=== PATIENT | male | born 1955 | race Caucasian/White ===

== ENCOUNTER 2020-11-02 06:31 | Day surgery (SDC) | payer MEDICARE ==
[2020-11-02] VITALS (13 sets, daily range): BP systolic 121–176; BP diastolic 73–100
[~2020-11-02] VITALS: Ht 170.2 cm; Wt 75.4 kg
[2020-11-02] MEDS ORDERED: LOSA50TA64 PO (07:03)
[2020-11-02] MEDS ORDERED: ASPI-1265 PO (07:03)
[2020-11-02] MEDS ORDERED: TRAZ-251 PO (07:03)
[2020-11-02] MEDS ORDERED: APIX5TAB3 PO (07:03)
[2020-11-02] MEDS ORDERED: LACT1CAP75 PO (07:03)
[2020-11-02] MEDS ORDERED: UBID100C45 PO (07:03)
[2020-11-02] MEDS ORDERED: SOTA80TA73 PO (07:03)
[2020-11-02] MEDS ORDERED: VITAMIN D3 (07:03)
[2020-11-02 07:46] LABS: BASOPHILS # (AUTO) 0.1 X10'3 (0-0.2); BASOPHILS % (AUTO) 1.1 % (0-1); EOSINOPHILS # (AUTO) 0.2 X10'3 (0-0.9); HEMATOCRIT 43.9 % (42.0-52.0); HEMOGLOBIN 14.7 g/dl (14.0-17.9); LYMPHOCYTES # (AUTO) 1.8 X10'3 (1.1-4.8); LYMPHOCYTES % (AUTO) 24.3 % (21-51); MEAN CORPUSCULAR HEMOGLOBIN 30.4 PG (27.0-31.0); MEAN CORPUSCULAR HGB CONC 33.5 g/dL (33.0-36.5); MEAN CORPUSCULAR VOLUME 90.5 FL (78-98); MEAN PLATELET VOLUME 7.3 FL (7.4-10.4); MONOCYTES # (AUTO) 0.8 X10'3 (0-0.9); MONOCYTES % (AUTO) 10.2 % (2-12); NEUTROPHILS # (AUTO) 4.6 X10'3 (1.8-7.7); NEUTROPHILS % (AUTO) 61.4 % (42-75); PLATELET COUNT 298 X10'3 (140-440); RED BLOOD COUNT 4.84 X10'6 (4.70-6.10); RED CELL DISTRIBUTION WIDTH 14.1 % (11.5-14.5); WHITE BLOOD COUNT 7.5 X10'3 (4.5-11.0)
[2020-11-02 08:07] LABS: ALBUMIN 3.6 G/DL (3.4-5.0); ANION GAP 8 (8-16); BLOOD UREA NITROGEN 25 MG/DL (7-18); BUN/CREATININE RATIO 35.7 (5.4-32.0); CALCIUM 8.7 MG/DL (8.5-10.1); CHLORIDE 107 MMOL/L (99-107); GLUCOSE 101 MG/DL (70-104); POTASSIUM 3.7 MMOL/L (3.5-5.1); SODIUM 142 MMOL/L (135-145); TOTAL CARBON DIOXIDE 26.9 MMOL/L (24-32); eGFR > 90 ML/MIN
[2020-11-02] MEDS ORDERED: MIDAZolam 1mg/ml 10ml vial IV ONE ×2 (08:40→10:50)
[2020-11-02] MEDS ORDERED: amiodarone 150mg/dext, iso-os 100 ML IV ONE ×2 (08:40→10:50)
[2020-11-02] MEDS ORDERED: morphine 10mg/ml inj. IV ONE ×2 (08:40→10:50)
[2020-11-02] MEDS ORDERED: atropine 0.1mg/ml 10ml syringe IV ONE ×2 (08:40→10:50)
[2020-11-02] MEDS ORDERED: LORazepam 0.5 MG tablet PO ONE (10:50)
[2020-11-02] MEDS ORDERED: normal saline 1000ml 1,000 ML IV SCH (10:50)
[2020-11-02] MEDS ORDERED: diphenhydrAMINE 25mg capsule PO ONE (10:50)
== END 2020-11-02 11:00 | disposition home or self-care (01) ==
LOC: SSTAY O 06:31
PROVIDERS: ATTEND Internal Medicine Cardiovascular Disease
DX: I48.19 Other persistent atrial fibrillation (principal); I49.5 Sick sinus syndrome; I10 Essential (primary) hypertension; E11.9 Type 2 diabetes mellitus without complications; E78.5 Hyperlipidemia, unspecified; K21.9 Gastro-esophageal reflux disease without esophagitis; M19.90 Unspecified osteoarthritis, unspecified site; F17.220 Nicotine dependence, chewing tobacco, uncomplicated; Z79.01 Long term (current) use of anticoagulants; Z79.82 Long term (current) use of aspirin; Z79.899 Other long term (current) drug therapy; Z98.890 Other specified postprocedural states; Z83.3 Family history of diabetes mellitus; Z82.49 Family history of ischemic heart disease and other diseases of the circulatory system
CPT/HCPCS: 36415; 80048; 85025; 85610; 92960; 93005; 94760; 94799; J2250; J2270

== ENCOUNTER 2022-01-18 07:10 | Day surgery (SDC) | payer MEDICARE, BC ==
[~2022-01-18] VITALS: Ht 170.2 cm; Wt 73.9 kg
[2022-01-18] VITALS (26 sets, daily range): BP systolic 98–163; BP diastolic 66–114
[~2022-01-18 07:10] MED LIST: APIX5TAB3 PO; ASPI-1265 PO; LACT1CAP75 PO; LOSA50TA64 PO; SOTA80TA73 PO; TRAZ-251 PO; UBID100C45 PO; VITAMIN D3
[2022-01-18] MEDS ORDERED: SOTA80TA73 PO (07:34)
[2022-01-18] MEDS ORDERED: OMEG1CAP61 PO (07:34)
[2022-01-18] MEDS ORDERED: MIDAZolam 1mg/ml 10ml vial IV ONE (08:15)
[2022-01-18] MEDS ORDERED: atropine 0.1mg/ml 10ml syringe IV ONE (08:15)
[2022-01-18] MEDS ORDERED: LORazepam 0.5 MG tablet PO ONE (08:15)
[2022-01-18] MEDS ORDERED: diphenhydrAMINE 25mg capsule PO ONE (08:15)
[2022-01-18] MEDS ORDERED: amiodarone 150mg/dext, iso-os 100 ML IV ONE (08:15)
[2022-01-18] MEDS ORDERED: morphine 10mg/ml inj. IV ONE (08:15)
[2022-01-18 08:16] LABS: BASOPHILS # (AUTO) 0.1 X10'3 (0-0.2); EOSINOPHILS # (AUTO) 0.2 X10'3 (0-0.9); EOSINOPHILS % (AUTO) 2.9 % (0-6); HEMATOCRIT 41.5 % (42.0-52.0); LYMPHOCYTES # (AUTO) 1.8 X10'3 (1.1-4.8); LYMPHOCYTES % (AUTO) 24.3 % (21-51); MEAN CORPUSCULAR HEMOGLOBIN 30.2 PG (27.0-31.0); MEAN CORPUSCULAR HGB CONC 33.6 g/dL (33.0-36.5); MEAN CORPUSCULAR VOLUME 89.8 FL (78-98); MEAN PLATELET VOLUME 7.3 FL (7.4-10.4); MONOCYTES # (AUTO) 0.6 X10'3 (0-0.9); MONOCYTES % (AUTO) 8.1 % (2-12); NEUTROPHILS # (AUTO) 4.7 X10'3 (1.8-7.7); NEUTROPHILS % (AUTO) 63.7 % (42-75); PLATELET COUNT 264 X10'3 (140-440); RED BLOOD COUNT 4.62 X10'6 (4.70-6.10); RED CELL DISTRIBUTION WIDTH 13.9 % (11.5-14.5); WHITE BLOOD COUNT 7.4 X10'3 (4.5-11.0)
[2022-01-18 08:19] LABS: ALBUMIN 3.4 G/DL (3.4-5.0); ANION GAP 7 (8-16); BLOOD UREA NITROGEN 25 MG/DL (7-18); BUN/CREATININE RATIO 33.3 (5.4-32.0); CALCIUM 8.6 MG/DL (8.5-10.1); CHLORIDE 107 MMOL/L (99-107); CREATININE 0.75 MG/DL (0.60-1.10); GLUCOSE 107 MG/DL (70-104); POTASSIUM 3.6 MMOL/L (3.5-5.1); SODIUM 142 MMOL/L (135-145); TOTAL CARBON DIOXIDE 28.3 MMOL/L (24-32); eGFR > 90 ML/MIN
[2022-01-18] MEDS ORDERED: normal saline 1000ml 1,000 ML IV SCH (08:25)
== END 2022-01-18 12:15 | disposition home or self-care (01) ==
LOC: SSTAY O 07:10
PROVIDERS: ATTEND Internal Medicine Cardiovascular Disease
DX: I48.0 Paroxysmal atrial fibrillation (principal); I10 Essential (primary) hypertension; E78.5 Hyperlipidemia, unspecified; Z79.899 Other long term (current) drug therapy; M19.90 Unspecified osteoarthritis, unspecified site; Z98.890 Other specified postprocedural states; Z79.82 Long term (current) use of aspirin; Z83.3 Family history of diabetes mellitus
CPT/HCPCS: 36415; 80048; 85025; 85610; 92960; 93005; 94760; 94799; J2250; J2274; J7030; A4620

== ENCOUNTER 2022-05-16 05:40 | Day surgery (SDC) | payer MEDICARE, BC ==
[2022-05-11 15:54] LABS: BASOPHILS # (AUTO) 0.1 X10'3 (0-0.2); BASOPHILS % (AUTO) 1.2 % (0-1); EOSINOPHILS # (AUTO) 0.3 X10'3 (0-0.9); EOSINOPHILS % (AUTO) 3.7 % (0-6); LYMPHOCYTES # (AUTO) 2.4 X10'3 (1.1-4.8); LYMPHOCYTES % (AUTO) 28.7 % (21-51); MEAN CORPUSCULAR HEMOGLOBIN 30.8 PG (27.0-31.0); MEAN CORPUSCULAR HGB CONC 34.1 g/dL (33.0-36.5); MEAN CORPUSCULAR VOLUME 90.2 FL (78-98); MEAN PLATELET VOLUME 7.3 FL (7.4-10.4); MONOCYTES # (AUTO) 0.8 X10'3 (0-0.9); MONOCYTES % (AUTO) 9.1 % (2-12); NEUTROPHILS # (AUTO) 4.9 X10'3 (1.8-7.7); NEUTROPHILS % (AUTO) 57.3 % (42-75); PRE OP HEMATOCRIT 42.5 % (42.0-52.0); PRE OP HEMOGLOBIN 14.5 g/dL (14.0-17.9); PRE OP PLATELET COUNT 283 X10'3 (140-440); RED BLOOD COUNT 4.71 X10'6 (4.70-6.10); RED CELL DISTRIBUTION WIDTH 13.9 % (11.5-14.5)
[2022-05-11 15:54] LABS: CLARITY,URINE CLEAR (Clear); COLOR,URINE YELLOW (Yellow); GLUCOSE, URINE NEGATIVE (Neg); KETONES,URINE NEGATIVE (Neg); LEUKOCYTE ESTERASE ,URINE NEGATIVE (Neg); NITRITES, URINE NEGATIVE (Neg); OCCULT BLOOD,URINE TRACE-INTACT (Neg); PROTEIN,URINE NEGATIVE (Neg); UROBILINOGEN,URINE 0.2 E.U/dL (0.2-1.0)
[2022-05-11 15:57] LABS: UA COLLECTION TYPE VOIDED
[2022-05-11 16:01] LABS: BACTERIA,URINE NONE SEEN /HPF (Neg); MUCUS STRANDS NONE SEEN /LPF (Neg); RBC,URINE 0-2 /HPF (0-2); SQUAMOUS EPITHELIAL CELL,UR NONE SEEN /LPF (FEW); WBC,URINE NONE SEEN /HPF (0-4)
[2022-05-11 16:06] LABS: ALBUMIN 3.8 G/DL (3.4-5.0); ALBUMIN/GLOBULIN RATIO 1.2 (1.1-1.5); ALKALINE PHOSPHATASE 106 IU/L (46-116); BLOOD UREA NITROGEN 21 MG/DL (7-18); BUN/CREATININE RATIO 29.2 (5.4-32.0); CALCIUM 9.3 MG/DL (8.5-10.1); CHLORIDE 104 MMOL/L (99-107); CREATININE 0.72 MG/DL (0.60-1.10); PRE OP ALT 30 U/L (30-65); PRE OP ANION GAP 4 (8-16); PRE OP AST 25 U/L (10-37); PRE OP BILIRUB, TOTAL 0.5 MG/DL (0.0-1.0); PRE OP GLUCOSE 89 MG/DL (70-104); PRE OP POTASSIUM 4.1 MMOL/L (3.4-5.1); PRE OP SODIUM 142 MMOL/L (135-145); TOTAL CARBON DIOXIDE 33.6 MMOL/L (24-32); TOTAL PROTEIN 6.9 G/DL (6.4-8.2); eGFR > 90 ML/MIN
[2022-05-16] VITALS (14 sets, daily range): BP systolic 146–200; BP diastolic 76–110
[~2022-05-16] VITALS: Ht 170.2 cm; Wt 69.4 kg
[~2022-05-16 05:40] MED LIST changes: +ERGO400C PO; -LACT1CAP75 PO; +LORazepam 0.5 MG tablet PO PRN; +OMEG1CAP61 PO; -VITAMIN D3; +ceFAZolin inj. 2,000 MG in dextrose 5%-water 100 ML IV ONE; +diphenhydrAMINE 25mg capsule PO PRN; +famotidine 20mg tablet PO ONE; +normal saline 1,000 ML IV SCH; +ringers solution, lacted 1,000 ML IV SCH
--- NOTE | 2022-05-16 06:30 | NUR ---
pt prepared for surgery. heart rate noted to be 46. stat ekg orders per md orders. senior technical support engineer at bedside, pt remains in sinus rhythm. bradycardic in the mid 40's EF noted to be 48% pt was instructed to stop his eliquis and baby aspirin 3 days prior to surgery but he stopped it 5 days prior on his own. anesthesia notified. 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
[2022-05-16] MEDS ORDERED: BUPIVAcaine 0.5% inj/PF 30 ML ONE (06:44)
[2022-05-16] MEDS ORDERED: fentaNYL/PF 50MCG/1 ML 2ML syringe ONE (07:36)
[2022-05-16] MEDS ORDERED: propofol inj 20 ML IV ONE (07:37)
[2022-05-16] MEDS ORDERED: midazolam 1 mg/ML 2ml injection ONE (07:37)
[2022-05-16] MEDS ORDERED: rocuronium 10mg/ml inj IV ONE (07:37)
[2022-05-16] MEDS ORDERED: morphine 4 MG/ML inj SYRINge IV PRN (07:50)
[2022-05-16] MEDS ORDERED: ondansetron/PF 4mg/2ml inj IV PRN (07:50)
[2022-05-16] MEDS ORDERED: meperidine/PF 25mg/ml syringe IV PRN ×2 (07:50)
[2022-05-16] MEDS ORDERED: morphine 2 MG/ML inj. syringe IV PRN (07:50)
[2022-05-16] MEDS ORDERED: proCHLORperazine 10 MG/2 ml inj IV PRN (07:50)
[2022-05-16] MEDS ORDERED: ringers solution, lacted 1,000 ML IV SCH (07:50)
[2022-05-16] MEDS ORDERED: sevoflurane 250ml liquid IH ONE (08:06)
[2022-05-16] MEDS ORDERED: BUPIVAcaine 0.5% inj/PF 30 ml vial IJ ONE (08:22)
[2022-05-16] MEDS ORDERED: dexamethasone sod phosphate 4mg/ml inj. ONE (08:30)
[2022-05-16] MEDS ORDERED: ondansetron/PF 4mg/2ml inj ONE (09:31)
[2022-05-16] MEDS ORDERED: neostigmine methylsulfate 1 MG/ML 10ml vial ONE (09:38)
[2022-05-16] MEDS ORDERED: glycopyrrolate 0.2mg/ml inj ONE (09:38)
--- NOTE | 2022-05-16 10:00 | NUR ---
Received from OR via BED, accompanied by Anesthesiologist and report given by Anesthesiologist. PATIENT WAKING UP, NO S/S OF PAIN, V/S WNL, SCD ON, 20G TO RUE, ABDOMEN LAP SITE CLEAN W/ NO S/S OF COMPLICATIONS
[2022-05-16] MEDS: meperidine/PF 25mg/ml syringe IV PRN ×2 (10:15→10:38)
[2022-05-16] MEDS ORDERED: HYDROcodone/acetaminophen 10/325mg tab PO ONE (10:15)
[2022-05-16] MEDS ORDERED: hydrALAZINE 20mg/ml inj. IV PRN (10:20)
--- NOTE | 2022-05-16 12:20 | NUR ---
PATIENT A&OX4, DENIES PAIN, V/S WNL, SCD OFF, 20G TO RUE D/C, ABDOMEN LAP SITE CLEAN W/ NO S/S OF COMPLICATIONS. PATIENT HAS VOIDED 200CC AND DR KEATING HAS STATED THAT HE MAY BE D/C HOME NOW. . I HAVE REVIEWED D/C INSTRUCTIONS WITH PATIENT and they have verbalized understanding patient d/c home with all belongings and family gave transport home.
== END 2022-05-16 12:20 | disposition home or self-care (01) ==
LOC: PAS 05:40
PROVIDERS: ATTEND Surgery
DX: K40.90 Unilateral inguinal hernia, without obstruction or gangrene, not specified as recurrent (principal); I10 Essential (primary) hypertension; I48.91 Unspecified atrial fibrillation; M19.90 Unspecified osteoarthritis, unspecified site; Z79.82 Long term (current) use of aspirin; Z98.890 Other specified postprocedural states; Z79.899 Other long term (current) drug therapy
CPT/HCPCS: 36415; 49650; 80053; 81001; 82948; 85025; 93005; C1758; C1781; J0360; J0690; J1100; J2175; J2250; J2405; J2704; J2710; J3010; J3490; J7030; J7060; J7120; S0020; Z7506; Z7508; Z7512; A4215; A4618

== ENCOUNTER 2022-10-03 08:07 | Day surgery (SDC) | payer MEDICARE, BC ==
[~2022-10-03] VITALS: Ht 170.2 cm; Wt 75.0 kg
[~2022-10-03 08:07] MED LIST changes: -LORazepam 0.5 MG tablet PO PRN; -ceFAZolin inj. 2,000 MG in dextrose 5%-water 100 ML IV ONE; -diphenhydrAMINE 25mg capsule PO PRN; -famotidine 20mg tablet PO ONE; -normal saline 1,000 ML IV SCH; -ringers solution, lacted 1,000 ML IV SCH
--- NOTE | 2022-10-03 08:25 | NUR ---
NSR on EKG. Notified Dr. Morales.
[2022-10-03 08:26] VITALS: BP 180/95
[2022-10-03] MEDS ORDERED: diphenhydrAMINE 25mg capsule PO ONE (09:15)
[2022-10-03] MEDS ORDERED: normal saline 1000ml 1,000 ML IV SCH (09:15)
[2022-10-03] MEDS ORDERED: atropine 0.1mg/ml 10ml syringe IV ONE (09:15)
[2022-10-03] MEDS ORDERED: LORazepam 0.5 MG tablet PO ONE (09:15)
[2022-10-03] MEDS ORDERED: amiodarone 150mg/dext, iso-os 100 ML IV ONE (09:15)
[2022-10-03] MEDS ORDERED: MIDAZolam 1mg/ml 10ml vial IV ONE (09:15)
[2022-10-03] MEDS ORDERED: morphine 10mg/ml inj. IV ONE (09:15)
--- NOTE | 2022-10-03 10:45 | NUR ---
Patient in NSR on EKG. Procedure cancelled. Patient left cardiac short stay. MD notified.
== END 2022-10-03 10:45 | disposition home or self-care (01) ==
LOC: SSTAY O 08:07
PROVIDERS: ATTEND Internal Medicine Cardiovascular Disease
DX: I48.0 Paroxysmal atrial fibrillation (principal); Z53.8 Procedure and treatment not carried out for other reasons
CPT/HCPCS: 93005; J7030; 92960; A4620

== ENCOUNTER 2023-04-23 06:58 | Day surgery (SDC) | payer MEDICARE, BC ==
[2023-04-22 14:17] LABS: BASOPHILS # (AUTO) 0.1 X10'3 (0-0.2); BASOPHILS % (AUTO) 0.7 % (0-1); EOSINOPHILS # (AUTO) 0.3 X10'3 (0-0.9); EOSINOPHILS % (AUTO) 3.9 % (0-6); HEMATOCRIT 45.6 % (42.0-52.0); HEMOGLOBIN 15.2 g/dl (14.0-17.9); LYMPHOCYTES # (AUTO) 1.8 X10'3 (1.1-4.8); LYMPHOCYTES % (AUTO) 20.6 % (21-51); MEAN CORPUSCULAR HEMOGLOBIN 30.5 PG (27.0-31.0); MEAN CORPUSCULAR HGB CONC 33.4 g/dL (33.0-36.5); MEAN CORPUSCULAR VOLUME 91.1 FL (78-98); MEAN PLATELET VOLUME 7.5 FL (7.4-10.4); MONOCYTES # (AUTO) 0.7 X10'3 (0-0.9); MONOCYTES % (AUTO) 7.9 % (2-12); NEUTROPHILS % (AUTO) 66.9 % (42-75); PLATELET COUNT 254 X10'3 (140-440); RED CELL DISTRIBUTION WIDTH 14.1 % (11.5-14.5); WHITE BLOOD COUNT 8.9 X10'3 (4.5-11.0)
[2023-04-22 14:35] LABS: ALBUMIN 3.5 G/DL (3.4-5.0); ANION GAP 5 (8-16); BLOOD UREA NITROGEN 22 MG/DL (7-18); BUN/CREATININE RATIO 26.8 (10.0-20.0); CALCIUM 9.5 MG/DL (8.5-10.1); CHLORIDE 107 MMOL/L (99-107); CREATININE 0.82 MG/DL (0.60-1.10); GLUCOSE 106 MG/DL (70-104); INR 1.1 INR; POTASSIUM 4.3 MMOL/L (3.5-5.1); PROTHROMBIN TIME 11.3 SECONDS (9.0-12.0); SODIUM 142 MMOL/L (135-145); TOTAL CARBON DIOXIDE 29.9 MMOL/L (24-32); eGFR > 90 ML/MIN
[~2023-04-23] VITALS: Ht 170.2 cm; Wt 73.6 kg
[2023-04-23] VITALS (13 sets, daily range): BP systolic 122–176; BP diastolic 77–112; PULSE 46–58; RESP 13–22; TEMP 97.9; O2SAT 96–99
[2023-04-23] MEDS ORDERED: atropine 0.1mg/ml 10ml syringe IV ONE (07:10)
[2023-04-23] MEDS ORDERED: diphenhydrAMINE 25mg capsule PO ONE (07:10)
[2023-04-23] MEDS ORDERED: LORazepam 0.5 MG tablet PO ONE (07:10)
[2023-04-23] MEDS ORDERED: morphine 10mg/ml inj. IV ONE (07:10)
[2023-04-23] MEDS ORDERED: normal saline 1000ml 1,000 ML IV SCH (07:10)
[2023-04-23] MEDS ORDERED: amiodarone 150mg/dext, iso-os 100 ML IV ONE (07:10)
[2023-04-23] MEDS ORDERED: MIDAZolam 1mg/ml 10ml vial IV ONE (07:10)
== END 2023-04-23 10:40 | disposition home or self-care (01) ==
LOC: SSTAY O 06:58
PROVIDERS: ATTEND Internal Medicine Cardiovascular Disease
DX: I48.0 Paroxysmal atrial fibrillation (principal); I34.0 Nonrheumatic mitral (valve) insufficiency; I10 Essential (primary) hypertension; E78.5 Hyperlipidemia, unspecified; I49.5 Sick sinus syndrome; K21.9 Gastro-esophageal reflux disease without esophagitis; M19.90 Unspecified osteoarthritis, unspecified site; F17.220 Nicotine dependence, chewing tobacco, uncomplicated; Z79.82 Long term (current) use of aspirin; Z79.01 Long term (current) use of anticoagulants; Z79.899 Other long term (current) drug therapy; Z98.890 Other specified postprocedural states; Z83.3 Family history of diabetes mellitus; Z82.49 Family history of ischemic heart disease and other diseases of the circulatory system
CPT/HCPCS: 36415; 80048; 85025; 85610; 92960; J0282; J0461; J2250; J2274; J7030; Q0163; A4620

== ENCOUNTER 2023-06-06 09:50 | Day surgery (SDC) | payer MEDICARE, BC ==
[2023-06-06] VITALS (12 sets, daily range): BP systolic 119–178; BP diastolic 82–107; PULSE 60–78; RESP 14–17; TEMP 98; O2SAT 94–99
[~2023-06-06] VITALS: Ht 170.2 cm; Wt 73.5 kg
[2023-06-06] MEDS ORDERED: normal saline 1000ml 1,000 ML IV SCH (09:55)
[2023-06-06] MEDS ORDERED: MIDAZolam 1mg/ml 10ml vial IV ONE (09:55)
[2023-06-06] MEDS ORDERED: diphenhydrAMINE 25mg capsule PO ONE (09:55)
[2023-06-06] MEDS ORDERED: amiodarone 150mg/dext, iso-os 100 ML IV ONE (09:55)
[2023-06-06] MEDS ORDERED: atropine 0.1mg/ml 10ml syringe IV ONE (09:55)
[2023-06-06] MEDS ORDERED: morphine 10mg/ml inj. IV ONE (09:55)
[2023-06-06] MEDS ORDERED: LORazepam 0.5 MG tablet PO ONE (09:55)
[2023-06-06] MEDS ORDERED: CARV3.1244 PO (09:57)
[2023-06-06] MEDS ORDERED: FLEC100T PO (09:57)
== END 2023-06-06 12:05 | disposition home or self-care (01) ==
LOC: SSTAY O 09:50
PROVIDERS: ATTEND Internal Medicine Cardiovascular Disease
DX: I48.0 Paroxysmal atrial fibrillation (principal); I10 Essential (primary) hypertension; E78.5 Hyperlipidemia, unspecified; K21.9 Gastro-esophageal reflux disease without esophagitis; M19.90 Unspecified osteoarthritis, unspecified site; I34.0 Nonrheumatic mitral (valve) insufficiency; E11.9 Type 2 diabetes mellitus without complications; F17.220 Nicotine dependence, chewing tobacco, uncomplicated; Z98.890 Other specified postprocedural states; Z79.82 Long term (current) use of aspirin; Z79.899 Other long term (current) drug therapy; Z83.3 Family history of diabetes mellitus; Z82.49 Family history of ischemic heart disease and other diseases of the circulatory system; Z72.89 Other problems related to lifestyle
CPT/HCPCS: 92960; 93005; J2250; J7030; A4620

== ENCOUNTER 2023-09-20 05:52 | Day surgery (SDC) | payer BC, MEDICARE ==
[2023-09-20] VITALS (10 sets, daily range): BP systolic 117–171; BP diastolic 72–114; PULSE 44–66; RESP 9–18; TEMP 97.7; O2SAT 92–98
[~2023-09-20] VITALS: Ht 170.2 cm; Wt 71.2 kg
[~2023-09-20 05:52] MED LIST changes: +CARV3.1244 PO; +FLEC100T PO; -SOTA80TA73 PO
[2023-09-20] MEDS ORDERED: AMI200T PO (06:21)
[2023-09-20] MEDS ORDERED: amiodarone 150mg/dext, iso-os 100 ML IV ONE (06:25)
[2023-09-20] MEDS ORDERED: diphenhydrAMINE 25mg capsule PO ONE (06:25)
[2023-09-20] MEDS ORDERED: atropine 0.1mg/ml 10ml syringe IV ONE (06:25)
[2023-09-20] MEDS ORDERED: LORazepam 0.5 MG tablet PO ONE (06:25)
[2023-09-20 06:58] LABS: BASOPHILS # (AUTO) 0.1 X10'3 (0-0.2); BASOPHILS % (AUTO) 1.5 % (0-1); EOSINOPHILS # (AUTO) 0.3 X10'3 (0-0.9); EOSINOPHILS % (AUTO) 4.3 % (0-6); HEMATOCRIT 45.1 % (42.0-52.0); HEMOGLOBIN 15.4 g/dl (14.0-17.9); LYMPHOCYTES # (AUTO) 1.7 X10'3 (1.1-4.8); LYMPHOCYTES % (AUTO) 22.3 % (21-51); MEAN CORPUSCULAR HEMOGLOBIN 30.5 PG (27.0-31.0); MEAN CORPUSCULAR HGB CONC 34.1 g/dL (33.0-36.5); MEAN CORPUSCULAR VOLUME 89.4 FL (78-98); MEAN PLATELET VOLUME 7.3 FL (7.4-10.4); MONOCYTES # (AUTO) 0.6 X10'3 (0-0.9); MONOCYTES % (AUTO) 7.8 % (2-12); NEUTROPHILS # (AUTO) 4.9 X10'3 (1.8-7.7); NEUTROPHILS % (AUTO) 64.1 % (42-75); PLATELET COUNT 242 X10'3 (140-440); RED BLOOD COUNT 5.04 X10'6 (4.70-6.10); RED CELL DISTRIBUTION WIDTH 14.4 % (11.5-14.5); WHITE BLOOD COUNT 7.7 X10'3 (4.5-11.0)
[2023-09-20 07:06] LABS: INR 1.1 INR; PROTHROMBIN TIME 11.9 SECONDS (9.0-12.0)
[2023-09-20 07:11] LABS: ALBUMIN 3.4 G/DL (3.4-5.0); ANION GAP 7 (8-16); BLOOD UREA NITROGEN 22 MG/DL (7-18); BUN/CREATININE RATIO 24.2 (10.0-20.0); CALCIUM 8.4 MG/DL (8.5-10.1); CHLORIDE 106 MMOL/L (99-107); CREATININE 0.91 MG/DL (0.60-1.10); GLUCOSE 108 MG/DL (70-104); POTASSIUM 3.8 MMOL/L (3.5-5.1); SODIUM 141 MMOL/L (135-145); TOTAL CARBON DIOXIDE 28.3 MMOL/L (24-32); eCRCL 74 ML/MIN; eGFR 83 ML/MIN
[2023-09-20] MEDS: normal saline 1000ml 1,000 ML IV SCH (08:16)
[2023-09-20] MEDS: MIDAZolam 1mg/ml 10ml vial IV ONE (08:16)
[2023-09-20] MEDS: morphine 10mg/ml inj. IV ONE (08:16)
== END 2023-09-20 09:38 | disposition home or self-care (01) ==
LOC: SSTAY O 05:52
PROVIDERS: ATTEND Internal Medicine Cardiovascular Disease
DX: I48.0 Paroxysmal atrial fibrillation (principal); I10 Essential (primary) hypertension; E78.5 Hyperlipidemia, unspecified; Z79.899 Other long term (current) drug therapy
CPT/HCPCS: 36415; 80048; 85025; 85610; 92960; 93005; J2250; J2274; J7030; A4620